=== PATIENT | male | born 1980 | race Caucasian/White ===

== ENCOUNTER 2019-01-28 22:34 | Emergency (ER) | payer MEDICAID ==
[~2019-01-28] VITALS: Ht 170.2 cm; Wt 79.8 kg
[2019-01-28 22:36] VITALS: Ht 170.2 cm; Wt 79.8 kg
[2019-01-28 23:08] LABS: BASOPHIL % 0.4 % (0-2); PLATELET COUNT 204 x10^3mcL (130-400); RED CELL DISTRIBUTION WIDTH 13.7 % (11.5-14.5)
[2019-01-28 23:17] LABS: CALCIUM 8.4 mg/dL (8.5-10.1); CARBON DIOXIDE 29.5 mmol/L (21-32); CHLORIDE SERUM 102 mmol/L (98-107); CREATININE SERUM 1.3 mg/dL (0.7-1.3); GFR1 > 60 mL/min; GLUCOSE SERUM 114 mg/dL (74-106); POTASSIUM SERUM 4.1 mmol/L (3.5-5.1); SODIUM SERUM 138 mmol/L (136-145)
[2019-01-28 23:22] LABS: ALBUMIN 3.9 g/dL (3.4-5.0); ALKALINE PHOSPHATASE 88 U/L (46-116); ALT/SGPT 36 U/L (16-63); AMYLASE 101 U/L (25-115); AST/SGOT 25 U/L (15-37); BILIRUBIN TOTAL 0.43 mg/dL (0.20-1.00); LIPASE 294 IU/L (73-393); TOTAL PROTEIN, SERUM 7.1 g/dL (6.4-8.2)
[2019-01-29 00:13] VITALS: BP 157/94
== END 2019-01-29 00:05 | disposition home or self-care (01) ==
LOC: ED 22:34
PROVIDERS: Emergency Medicine
DX: R10.11 Right upper quadrant pain (principal)
CPT/HCPCS: 36415; J1885

== ENCOUNTER 2019-06-22 11:58 | Emergency (ER) | payer MEDICAID ==
[~2019-06-22] VITALS: Ht 167.6 cm; Wt 80.3 kg
[2019-06-22 12:59] VITALS: Ht 167.6 cm; Wt 80.3 kg
[2019-06-22 16:55] VITALS: BP 137/84
== END 2019-06-22 16:57 | disposition home or self-care (01) ==
LOC: ED 11:58
DX: M54.5 Low back pain (principal); G89.29 Other chronic pain
CPT/HCPCS: J1100; J1885